=== PATIENT | female | born 1955 | race Caucasian/White ===

== ENCOUNTER 2016-08-16 18:07 | Inpatient (IN) | payer OTHER ==
[~2016-08-16] VITALS: Ht 152.4 cm; Wt 84.6 kg
[2016-08-16] MEDS ORDERED: LISI-170 PO (18:54)
[2016-08-16] MEDS ORDERED: ACETAMINOPHEN 325 MG TABLET PO ONE (19:00)
[2016-08-16] MEDS ORDERED: SODIUM CHLORIDE 0.9% 1,000ML IVBOLUS ONE ×3 (19:00→20:00)
[2016-08-16] MEDS ORDERED: ACETAMINOPHEN 325 MG TABLET ONE (19:26)
[2016-08-16 19:30] LABS: ASPARTATE AMINO TRANSFERASE 11 U/L (15-37); BLOOD UREA NITROGEN 43 mg/dL (7-18)
[2016-08-16 19:36] LABS: IS PT STATUS REG ER OR PRE ER? YES
[2016-08-16 19:59] LABS: DIFF TOTAL CELLS COUNTED 200 CELL DIFF; VERIFY COUNTS? YES
[2016-08-16] MEDS ORDERED: VANCOMYCIN PER PHARMACY IV ONE (20:00)
[2016-08-16] MEDS ORDERED: PIPERACILLIN/TAZO 3.375 GM in SODIUM CHLORIDE 0.9% 50 ML IVPB ONE (20:00)
[2016-08-16] MEDS ORDERED: VANCOMYCIN 1,400 MG in SODIUM CHLORIDE 0.9% 250 ML IV ONE ×2 (20:00→23:45)
[2016-08-16] MEDS ORDERED: PHARMACOKINETIC CONSULTATION MC ONE ×2 (20:00→23:45)
[2016-08-16] MEDS ORDERED: ONDANSETRON 2MG/ML, 2ML IVPush PRN ×2 (21:00→22:00)
[2016-08-16] MEDS ORDERED: SODIUM CHLORIDE 0.9% 1,000 ML IV ONE (21:00)
[2016-08-16] MEDS ORDERED: DOCUSATE 100 MG CAPSULE PO PRN (22:00)
[2016-08-16] MEDS ORDERED: BISACODYL 10 MG SUPP PR PRN (22:00)
[2016-08-16] MEDS ORDERED: POLYETHYLENE GLYCOL 17 GM PACKET PO PRN (22:00)
[2016-08-16] MEDS ORDERED: ENALAPRILAT 1.25 MG/ML, 2ML IVPush PRN (22:00)
[2016-08-16] MEDS ORDERED: VANCOMYCIN PER PHARMACY MC PRN (22:00)
[2016-08-16] MEDS ORDERED: OXYcodone IR 5MG TABLET PO PRN (22:00)
[2016-08-16] MEDS ORDERED: DIPHENHYDRAMINE 25 MG CAPSULE PO PRN (22:00)
[2016-08-16] MEDS ORDERED: SODIUM CHLORIDE 0.9% 1,000 ML IV SCH (22:00)
[2016-08-16] MEDS ORDERED: morphine SULFATE 10 MG/ML, 1ML IVPush PRN (22:00)
[2016-08-16 23:19] VITALS: BP 102/66
[2016-08-16] MEDS ORDERED: PHARMACOKINETIC MONITORING MC PRN (23:45)
[2016-08-16] MEDS: HEPARIN 5,000 UNITS/ML, 1ML SQ SCH (23:54)
[2016-08-17 02:00] VITALS: BP 105/68
[2016-08-17] MEDS: ACETAMINOPHEN 325 MG TABLET PO PRN ×3 (02:00→17:02)
[2016-08-17] MEDS: PIPERACILLIN/TAZO 2.25 GM in SODIUM CHLORIDE 0.9% 50 ML IV SCH ×4 (02:02→20:34)
[2016-08-17 04:19] LABS: BLOOD UREA NITROGEN 42 mg/dL (7-18)
[2016-08-17 04:24] LABS: ASPARTATE AMINO TRANSFERASE 27 U/L (15-37)
[2016-08-17 06:22] LABS: DIFF TOTAL CELLS COUNTED 100 CELL DIFF
[2016-08-17 06:25] LABS: VERIFY COUNTS? YES
[2016-08-17 07:05] VITALS: BP 99/63
[2016-08-17] MEDS: HEPARIN 5,000 UNITS/ML, 1ML SQ SCH ×2 (09:22→17:02)
[2016-08-17] MEDS: POTASSIUM CHLORIDE 10 MEQ in SODIUM CHLORIDE 0.9% 1,000 ML IV SCH ×2 (10:13→17:02)
[2016-08-17 15:06] VITALS: BP 103/68
[2016-08-17 20:00] VITALS: BP 118/63
[2016-08-18] MEDS: HEPARIN 5,000 UNITS/ML, 1ML SQ SCH ×4 (00:13→23:44)
[2016-08-18] MEDS: POTASSIUM CHLORIDE 10 MEQ in SODIUM CHLORIDE 0.9% 1,000 ML IV SCH ×2 (00:52→09:13)
[2016-08-18] MEDS: PIPERACILLIN/TAZO 2.25 GM in SODIUM CHLORIDE 0.9% 50 ML IV SCH ×3 (02:42→14:18)
[2016-08-18 02:51] VITALS: BP 119/75
[2016-08-18 05:46] LABS: DIFF TOTAL CELLS COUNTED 100 CELL DIFF
[2016-08-18 05:49] LABS: VERIFY COUNTS? YES
[2016-08-18 06:41] LABS: BLOOD UREA NITROGEN 19 mg/dL (7-18)
[2016-08-18] MEDS ORDERED: VANCOMYCIN 1,400 MG in SODIUM CHLORIDE 0.9% 250 ML IV SCH (08:00)
[2016-08-18 08:01] VITALS: BP 123/81
[2016-08-18] MEDS ORDERED: POTASSIUM CHLORIDE 20 MEQ TAB.ER.PRT PO ONE (12:30)
[2016-08-18 14:53] VITALS: BP 113/75
[2016-08-18 19:09] VITALS: BP 132/74
[2016-08-18] MEDS: PIPERACILLIN/TAZO 3.375 GM in SODIUM CHLORIDE 0.9% 50 ML IV SCH (21:41)
[2016-08-19 02:45] VITALS: BP 105/67
[2016-08-19] MEDS: PIPERACILLIN/TAZO 3.375 GM in SODIUM CHLORIDE 0.9% 50 ML IV SCH ×4 (03:36→21:24)
[2016-08-19 06:11] LABS: BLOOD UREA NITROGEN 14 mg/dL (7-18)
[2016-08-19 06:32] LABS: DIFF TOTAL CELLS COUNTED 100 CELL DIFF
[2016-08-19 06:33] LABS: VERIFY COUNTS? YES
[2016-08-19 09:05] VITALS: BP 120/76
[2016-08-19] MEDS: HEPARIN 5,000 UNITS/ML, 1ML SQ SCH ×2 (09:20→17:00)
[2016-08-19] MEDS: POTASSIUM CHLORIDE 20 MEQ in SODIUM CHLORIDE 0.9% 1,000 ML IV SCH (09:30)
[2016-08-19] MEDS ORDERED: VANCOMYCIN 1,400 MG in SODIUM CHLORIDE 0.9% 250 ML IV SCH ×2 (12:00→14:00)
[2016-08-19 14:58] VITALS: BP 126/64
[2016-08-19] MEDS: ACETAMINOPHEN 325 MG TABLET PO PRN (15:07)
[2016-08-19 19:52] VITALS: BP 128/79
[2016-08-20] MEDS: POTASSIUM CHLORIDE 20 MEQ in SODIUM CHLORIDE 0.9% 1,000 ML IV SCH (00:07)
[2016-08-20] MEDS: HEPARIN 5,000 UNITS/ML, 1ML SQ SCH ×2 (00:36→09:00)
[2016-08-20 01:51] VITALS: BP 121/70
[2016-08-20] MEDS: PIPERACILLIN/TAZO 3.375 GM in SODIUM CHLORIDE 0.9% 50 ML IV SCH ×2 (03:31→09:30)
[2016-08-20 07:54] VITALS: BP 122/79
[2016-08-20] MEDS ORDERED: FEXO1TAB29 PO (08:41)
== END 2016-08-20 11:20 | disposition home or self-care (01) | DRG 871 ==
LOC: ED 19:46 → EDIP 21:43 → 4WST 23:13 → DCLOUNGE 08-20 11:13
PROVIDERS: ADMIT Internal Medicine
DX: A41.9 Sepsis, unspecified organism (principal); R65.21 Severe sepsis with septic shock; N17.0 Acute kidney failure with tubular necrosis; E43 Unspecified severe protein-calorie malnutrition; N39.0 Urinary tract infection, site not specified; I10 Essential (primary) hypertension; Z82.49 Family history of ischemic heart disease and other diseases of the circulatory system; E87.6 Hypokalemia; E66.01 Morbid (severe) obesity due to excess calories; I95.9 Hypotension, unspecified; Z68.36 Body mass index [BMI] 36.0-36.9, adult
CPT/HCPCS: 36415; 71010; 80048; 80053; 80061; 81001; 83605; 83735; 84145; 84439; 84443; 84484; 85025; 86308; 87040; 87081; 87086; 87880; 93306; 96365; 96366; 96368; J1644; J2543; J3370; J3480; J7030; J7050